=== PATIENT | female | born 2000 | race Caucasian/White ===

== ENCOUNTER 2023-07-13 15:03 | Outpatient (CLI) | payer BC | END 2023-07-13 15:04 | disposition home or self-care (01) | LOC: CSHRAD 15:03 | PROVIDERS: ATTEND Family Medicine | DX: R10.30 Lower abdominal pain, unspecified (principal) | CPT/HCPCS: 74018 ==

== ENCOUNTER 2024-06-22 07:07 | Inpatient (IN) | payer BC ==
[2024-06-28] MEDS ORDERED: hydrALAZINE 20 MG/ML VIAL SLOW IVP PRN (20:21)
[2024-06-28] MEDS ORDERED: Ondansetron PF 4 MG/2 ML Vial IVP PRN (20:21)
[2024-06-28] MEDS ORDERED: Promethazine HCl 25 MG/ML VIAL IM PRN (20:21)
[2024-06-28] MEDS ORDERED: Oxytocin 30 units/NS 500 ML 500 ML IV SCH (20:21)
[2024-06-28] MEDS ORDERED: Ibuprofen 800 MG TAB PO PRN (20:21)
[2024-06-28] MEDS ORDERED: fentaNYL 50 mcg/mL 1 mL Vial SLOW IVP PRN (20:21)
[2024-06-28] MEDS ORDERED: Lidocaine 1% (PF) 30 ML VIAL SC PRN (20:21)
[2024-06-28] MEDS ORDERED: HYDROcodone/Acetaminophen 5/325 mg Tablet PO PRN ×2 (20:21)
[2024-06-28 20:26] VITALS: BMI 33.5
[2024-06-28 21:26] LABS: Hematocrit 33.5 % (34.9-44.5); Hemoglobin 11.3 g/dL (12.0-15.5); Mean Corpuscular HGB CONC 33.7 g/dL (32.0-36.0); Mean Corpuscular Hemoglobin 27.4 pg (27.0-33.0); Mean Corpuscular Volume 81.1 fL (81.6-98.3); Mean Platelet Volume 11.7 fL (7.4-10.4); Platelet Count 288 10x3/uL (150-450); Red Blood Cell (RBC) Count 4.13 10x6/uL (3.90-5.03); White Blood Cell (WBC) Count 10.9 10x3/uL (3.5-10.5)
[2024-06-28 21:44] LABS: Syphilis Antibody Nonreactive (Nonreactive); Syphilis Antibody Index 0.07 S/CO (<1.00 Non-Reactive)
[2024-06-28 21:47] LABS: HBsAg Index 0.25 S/CO (0-0.99); Hep B Surf Ag - L&D Non-Reactive S/CO (NonReactive)
[2024-06-29] MEDS: Misoprostol 100 MCG TAB VAG SCH (05:15)
[2024-06-29] MEDS: Lactated Ringer's 1,000 ML IV SCH (08:45)
[2024-06-29] MEDS: Oxytocin 30 units/NS 500 ML 500 ML IV SCH (08:46)
[2024-06-29] MEDS: fentaNYL/Ropivacaine Epidural 100 ML ONE (08:46)
[2024-06-29] MEDS ORDERED: diphenhydrAMINE 50 MG/ML VIAL IVP PRN (08:48)
[2024-06-29] MEDS ORDERED: Naloxone HCl 0.4 mg/ml Vial IVP PRN ×2 (08:48)
[2024-06-29] MEDS ORDERED: ePHEDrine Sulfate 50 MG/10 ML VIAL SLOW IVP PRN (08:48)
[2024-06-29] MEDS ORDERED: Promethazine HCl 25 MG/ML VIAL IM PRN (08:48)
[2024-06-29] MEDS ORDERED: Ondansetron PF 4 MG/2 ML Vial IVP PRN ×2 (08:48→18:22)
[2024-06-29] MEDS ORDERED: Lactated Ringer's 500 ML IV PRN (08:48)
[2024-06-29] MEDS ORDERED: Acetaminophen 325 MG TAB PO PRN (08:48)
[2024-06-29] MEDS ORDERED: Moisturizing Cream (Eucerin) 113 GM JAR TOP PRN (08:48)
[2024-06-29] MEDS ORDERED: Communication Order-Pharmacy FS SCH (09:00)
[2024-06-29] MEDS ORDERED: Bupivacaine 0.25% HCL 30 ML VIAL ONE (09:00)
[2024-06-29] MEDS ORDERED: fentaNYL 2 mcg/Ropivacaine 0.2% Epidural 100 ML CADD EPIDURAL SCH (09:00)
[2024-06-29] MEDS ORDERED: HYDROcodone/Acetaminophen 5/325 mg Tablet PO PRN ×2 (18:22)
[2024-06-29] MEDS ORDERED: Lanolin Ointment 7 GM TUBE TOP PRN (18:22)
[2024-06-29] MEDS ORDERED: diphenhydrAMINE 25 MG CAP PO PRN (18:22)
[2024-06-29] MEDS ORDERED: Milk Of Magnesia 30 ML UDCUP PO PRN (18:22)
[2024-06-29] MEDS ORDERED: Oxytocin 30 units/NS 500 ML 500 ML IV SCH (18:22)
[2024-06-29] MEDS ORDERED: Preparation H Ointment 28 GM TUBE PR PRN (18:22)
[2024-06-29] MEDS ORDERED: Benzocaine-Menthol 82.5 ML CAN TOP PRN (18:22)
[2024-06-29] MEDS ORDERED: Bisacodyl 10 MG SUPP PR PRN (18:22)
[2024-06-29] MEDS ORDERED: hydrALAZINE 20 MG/ML VIAL SLOW IVP PRN (18:22)
[2024-06-29] MEDS: Boostrix 0.5 ML (Tdap) VIAL (>/=7 yrs of age) IM ONE (19:09)
[2024-06-29] MEDS: Ferrous Sulfate 325 MG TAB PO SCH (19:09)
[2024-06-29] MEDS: Ibuprofen 800 MG TAB PO SCH (21:07)
[2024-06-29] MEDS: Docusate 100 MG CAP PO SCH (21:07)
[2024-06-30] MEDS: Ferrous Sulfate 325 MG TAB PO SCH (07:20)
[2024-06-30] MEDS: Prenatal Vitamin 1 TAB PO SCH (08:54)
[2024-07-01 07:49] VITALS: BP 109/70; TEMP 98.1
== END 2024-07-01 17:10 | disposition home or self-care (01) | DRG 807 ==
LOC: CSHLD 06-28 19:51 → CSHPED 06-29 17:48
PROVIDERS: ADMIT Obstetrics & Gynecology; ATTEND Obstetrics & Gynecology
PROC: 0UQMXZZ Repair Vulva, External Approach (ICD-10-PCS; principal; 2024-06-29)
PROC: 10E0XZZ Delivery of Products of Conception, External Approach (ICD-10-PCS; 2024-06-29)
PROC: 10907ZC Drainage of Amniotic Fluid, Therapeutic from Products of Conception, Via Natural or Artificial Opening (ICD-10-PCS; 2024-06-29)
DX: O48.0 Post-term pregnancy (principal); Z37.0 Single live birth; Z3A.41 41 weeks gestation of pregnancy; O71.82 Other specified trauma to perineum and vulva; Z90.49 Acquired absence of other specified parts of digestive tract; Z79.899 Other long term (current) drug therapy
CPT/HCPCS: 36415; 51702; 85027; 86780; 86850; 86900; 86901; 87340; J0665; J2590; J7120